=== PATIENT | male | born 1960 | race African-American/Black ===

== ENCOUNTER 2022-06-21 15:42 | Inpatient (IN) | payer OTHER ==
[2022-06-21 16:56] VITALS: BMI 24.3
[2022-06-21] MEDS ORDERED: BISMUTH SUBSALICYLATE 524 MG/30 ML PO PRN (19:59)
[2022-06-21] MEDS ORDERED: IBUPROFEN 600 MG TABLET (FP) PO PRN (19:59)
[2022-06-21] MEDS ORDERED: MAGNESIUM HYDROX 2400MG/30ML ORAL SUSPENSION 30 ML CUP PO PRN (19:59)
[2022-06-21] MEDS ORDERED: DICYCLOMINE HCL 10 MG CAPSULE PO PRN (19:59)
[2022-06-21] MEDS ORDERED: IBUPROFEN 400 MG TABLET (FP) PO PRN (19:59)
[2022-06-21] MEDS ORDERED: BENZOCAINE/MENTHOL (CHLORASEPTIC ) LOZENGE MM PRN (19:59)
[2022-06-21] MEDS ORDERED: MAGNESIUM CITRATE 300 ML BOTTLE PO PRN (19:59)
[2022-06-21] MEDS ORDERED: MAG HYDROX/AL HYDROX/SIMETH 30 ML UNIT-DOSE CUP PO PRN (19:59)
[2022-06-21] MEDS ORDERED: METHOCARBAMOL 500 MG TABLET PO PRN (19:59)
[2022-06-21] MEDS ORDERED: LOPERAMIDE HCL 2 MG CAPSULE PO PRN (19:59)
[2022-06-21] MEDS ORDERED: NICOTINE 10 MG CARTRIDGE (INHALER) IH PRN (19:59)
[2022-06-21] MEDS ORDERED: ACETAMINOPHEN 325 MG TABLET (FP) PO PRN ×2 (19:59)
[2022-06-21] MEDS ORDERED: ONDANSETRON *ODT* 4 MG TABLET SL PRN (19:59)
[2022-06-22] MEDS: hydrOXYzine PAMOATE 25 MG CAPSULE (FP) PO SCH ×3 (01:34→14:09)
[2022-06-22] MEDS: MELATONIN 5 MG TABLETS PO SCH ×2 (01:35→21:32)
[2022-06-22] MEDS: THIAMINE HCL 100 MG TABLET (FP) PO SCH ×2 (01:43→21:31)
[2022-06-22] MEDS: METOPROLOL TARTRATE 50 MG TABLET (FP) PO SCH ×3 (01:43→21:31)
[2022-06-22 10:32] LABS: HEMATOCRIT 37.9 % (35.4-49); HEMOGLOBIN 12.4 GM/dL (11.7-16.9); MCHC 32.6 g/dl (32.0-35.9); MEAN CELL VOLUME 85.9 fl (80-96); MEAN PLT VOLUME 7.4 fl (7.5-11.1); PLATELET COUNT 336 10^3/uL (134-434); RBC 4.41 M/mm3 (4.00-5.60); RDW 15.3 % (11.9-15.9); WHITE BLOOD COUNT 3.6 K/mm3 (4.0-10.0)
[2022-06-22 10:45] LABS: CALCIUM 9.3 mg/dL (8.5-10.1)
[2022-06-22 10:46] LABS: ALBUMIN 2.6 g/dl (3.4-5.0)
[2022-06-22 10:48] LABS: CREATININE 1.1 mg/dL (0.55-1.3)
[2022-06-22 10:49] LABS: BLOOD UREA NITROGEN 23.8 mg/dL (7-18); TOT PROT 6.2 g/dl (6.4-8.2)
[2022-06-22 10:50] LABS: BILIRUBIN,TOTAL 0.3 mg/dL (0.2-1)
[2022-06-22] MEDS: PRENATAL VITAMINS W/ FOLIC ACID TABLET (FP) PO SCH (14:03)
[2022-06-22] MEDS ORDERED: DEXMEDETOMIDINE HCL 200 MCG/2 ML IVPB ONE (15:09)
[2022-06-22] MEDS: ASPIRIN COATED 81 MG TABLET.EC PO SCH (16:37)
[2022-06-23] MEDS ORDERED: methaDONE HCL 10 MG TABLET (FOR DETOX USE ONLY) PO ONE (09:06)
[2022-06-23] MEDS: ASPIRIN COATED 81 MG TABLET.EC PO SCH (11:13)
[2022-06-23] MEDS: METOPROLOL TARTRATE 50 MG TABLET (FP) PO SCH ×2 (11:13→23:26)
[2022-06-23] MEDS: PRENATAL VITAMINS W/ FOLIC ACID TABLET (FP) PO SCH (11:13)
[2022-06-23] MEDS: cloNIDine HCL 0.1 MG TABLET PO PRN (18:43)
[2022-06-23] MEDS: MELATONIN 5 MG TABLETS PO SCH (23:26)
[2022-06-23] MEDS: THIAMINE HCL 100 MG TABLET (FP) PO SCH (23:26)
[2022-06-24] MEDS ORDERED: methaDONE HCL 10 MG TABLET (FOR DETOX USE ONLY) ONE (09:54)
[2022-06-24] MEDS: ASPIRIN COATED 81 MG TABLET.EC PO SCH (10:44)
[2022-06-24] MEDS: PRENATAL VITAMINS W/ FOLIC ACID TABLET (FP) PO SCH (10:45)
[2022-06-24] MEDS: METOPROLOL TARTRATE 50 MG TABLET (FP) PO SCH ×2 (10:45→22:53)
[2022-06-24] MEDS: cloNIDine HCL 0.1 MG TABLET PO PRN (11:54)
[2022-06-24] MEDS: THIAMINE HCL 100 MG TABLET (FP) PO SCH (22:51)
[2022-06-24] MEDS: MELATONIN 5 MG TABLETS PO SCH (22:52)
[2022-06-25] MEDS ORDERED: methaDONE HCL 10 MG TABLET (FOR DETOX USE ONLY) PO ONE (10:00)
[2022-06-25] MEDS: METOPROLOL TARTRATE 50 MG TABLET (FP) PO SCH ×2 (10:35→22:39)
[2022-06-25] MEDS: ASPIRIN COATED 81 MG TABLET.EC PO SCH (10:35)
[2022-06-25] MEDS: PRENATAL VITAMINS W/ FOLIC ACID TABLET (FP) PO SCH (10:36)
[2022-06-25] MEDS ORDERED: ACETAMINOPHEN 325 MG TABLET (FP) PO ONE (12:45)
[2022-06-25] MEDS ORDERED: cloNIDine HCL 0.1 MG TABLET PO ONE (12:45)
[2022-06-25] MEDS ORDERED: METHOCARBAMOL 500 MG TABLET PO ONE (12:45)
[2022-06-25] MEDS: MELATONIN 5 MG TABLETS PO SCH (22:39)
[2022-06-25] MEDS: THIAMINE HCL 100 MG TABLET (FP) PO SCH (22:39)
[2022-06-26] MEDS ORDERED: methaDONE HCL 10 MG TABLET (FOR DETOX USE ONLY) ONE (10:43)
[2022-06-26] MEDS: METOPROLOL TARTRATE 50 MG TABLET (FP) PO SCH ×2 (10:44→22:37)
[2022-06-26] MEDS: PRENATAL VITAMINS W/ FOLIC ACID TABLET (FP) PO SCH (10:44)
[2022-06-26] MEDS: ASPIRIN COATED 81 MG TABLET.EC PO SCH (13:35)
[2022-06-26] MEDS: THIAMINE HCL 100 MG TABLET (FP) PO SCH (22:37)
[2022-06-26] MEDS: MELATONIN 5 MG TABLETS PO SCH (22:37)
[2022-06-27] MEDS ORDERED: methaDONE HCL 10 MG TABLET (FOR DETOX USE ONLY) PO ONE (10:00)
[2022-06-27] MEDS: PRENATAL VITAMINS W/ FOLIC ACID TABLET (FP) PO SCH (10:55)
[2022-06-27] MEDS: METOPROLOL TARTRATE 50 MG TABLET (FP) PO SCH ×2 (10:55→22:56)
[2022-06-27] MEDS: ASPIRIN COATED 81 MG TABLET.EC PO SCH (15:11)
[2022-06-27] MEDS: MELATONIN 5 MG TABLETS PO SCH (22:56)
[2022-06-27] MEDS: THIAMINE HCL 100 MG TABLET (FP) PO SCH (22:56)
[2022-06-28 06:02] VITALS: RESP 18
[2022-06-28 09:17] VITALS: BP 130/77; PULSE 67; TEMP 96.9
== END 2022-06-28 09:20 | disposition home or self-care (01) | DRG 773 ==
LOC: YASAS 15:42 → Y6N 22:40
PROVIDERS: ADMIT Allergy & Immunology; ATTEND Surgery
PROC: HZ2ZZZZ Detoxification Services for Substance Abuse Treatment (ICD-10-PCS; principal; 2022-06-21)
DX: F11.23 Opioid dependence with withdrawal (principal); F17.210 Nicotine dependence, cigarettes, uncomplicated; I48.91 Unspecified atrial fibrillation; Z95.0 Presence of cardiac pacemaker
CPT/HCPCS: 36415; 80053; 84520; 85027; 86780; 93005; 93010; C9803-CS; J0735; U0003; U0005